=== PATIENT | male | born 1975 | race Caucasian/White ===

== ENCOUNTER 2018-12-23 12:32 | Emergency (ER) | payer SELFPAY | END 2018-12-23 13:50 | disposition left against medical advice (07) | LOC: E/R 12:32 | DX: Z53.21 Procedure and treatment not carried out due to patient leaving prior to being seen by health care provider (principal) ==

== ENCOUNTER 2019-02-03 11:45 | Emergency (ER) | payer BC ==
[2019-02-03 13:14] LABS: ADD MAN DIFF? NO
[2019-02-03 13:17] LABS: WHITE BLOOD COUNT 6.8 10^3/ul (4.8-10.8)
[2019-02-03 13:17] LABS: ABNORMAL IP MESSAGE 1; BASOPHIL # 0.1 10^3/ul (0.0-0.1); BASOPHILS % 1.3 % (0.0-2.0); EOSINOPHILS # 0.2 10^3/ul (0.0-0.5); EOSINOPHILS % 2.8 % (0.0-7.0); HEMATOCRIT 23.8 % (42.0-52.0); HEMOGLOBIN 7.8 g/dl (14.0-18.0); LYMPHOCYTES # 1.4 10^3/ul (0.8-2.9); LYMPHOCYTES % 20.8 % (15.0-51.0); MEAN CORPUSCULAR HGB CONC 32.8 g/dl (32.0-37.0); MEAN CORPUSCULAR VOLUME 88.5 fl (82.0-101.0); MEAN PLATELET VOLUME 10.3 fl (7.4-10.4); MONOCYTES % 14.4 % (0.0-11.0); NEUTROPHIL # 4.1 10^3/ul (1.6-7.5); NEUTROPHILS % 60.1 % (39.0-77.0); PLATELET COUNT 69 10^3/UL (140-415); POSITIVE DIFF @See below; RED BLOOD COUNT 2.69 10^6/ul (4.70-6.10); RED CELL DISTRIBUTION WIDTH 19.5 % (11.5-14.5)
[2019-02-03 13:35] LABS: ALANINE AMINOTRANSFERASE 52 IU/L (13-69); ALBUMIN 3.9 g/dl (3.3-4.9); ALBUMIN/GLOBULIN RATIO 0.73; ALKALINE PHOSPHATASE 157 IU/L (42-121); ANION GAP 10 (5-13); ASPARTATE AMINO TRANSFERASE 139 IU/L (15-46); BILIRUBIN,INDIRECT 3.8 mg/dl (0-1.1); BILIRUBIN,TOTAL 4.3 mg/dl (0.2-1.3); BLOOD UREA NITROGEN 11 mg/dl (7-20); CALCIUM 8.8 mg/dl (8.4-10.2); CARBON DIOXIDE 23 mmol/L (21-31); CHLORIDE 105 mmol/L (97-110); CREATININE 0.61 mg/dl (0.61-1.24); Estimated GFR > 60 mL/min (>60); GLUCOSE 115 mg/dl (70-220); POTASSIUM 3.8 mmol/L (3.5-5.1); SODIUM 138 mmol/L (135-144); TOTAL PROTEIN 9.2 g/dl (6.1-8.1)
[2019-02-03 13:40] LABS: INR 1.75; PROTIME 20.5 Sec (11.9-14.9); PT RATIO 1.6
[2019-02-03 13:41] LABS: PARTIAL THROMBOPLASTIN TIME 40.8 Sec (23.0-35.0)
[2019-02-03 14:39] LABS: ANISOCYTOSIS 1+ (0-0); EOSINOPHILS % (M) 1 % (0-7); LYMPHOCYTES #M 2.4 10^3/ul (0.8-2.9); LYMPHOCYTES % (M) 36 % (15-51); MICROCYTOSIS 1+ (0-0); MONOCYTE #M 0.5 10^3/ul (0.3-0.9); MONOCYTES % (M) 8 % (0-11); PLATELET ESTIMATE DECREASED; REACTIVE LYMPHOCYTES% (M) 1 % (0-0); SEGMENTED NEUTROPHILS (M) % 54 % (39-77); SMUDGE%M 2 % (0-0)
== END 2019-02-03 14:29 | disposition home or self-care (01) ==
LOC: E/R 11:45
DX: S80.11XA Contusion of right lower leg, initial encounter (principal); X50.1XXA Overexertion from prolonged static or awkward postures, initial encounter; Y92.9 Unspecified place or not applicable
CPT/HCPCS: 80053; 85025; 85610; 85730; 86850; 86900; 86901; 99283

== ENCOUNTER 2019-02-05 06:41 | Inpatient (IN) | payer BC ==
[2019-02-05] MEDS: morphine 4 MG/ML VIAL IV (07:19)
[2019-02-05] MEDS: SOD CHLORIDE 0.9% 1,000 ML IV ×2 (07:19→12:22)
[2019-02-05] MEDS: ONDANSETRON 4 MG INJ IV (07:19)
[2019-02-05 07:20] LABS: ADD MAN DIFF? NO
[2019-02-05 07:22] LABS: WHITE BLOOD COUNT 8.4 10^3/ul (4.8-10.8)
[2019-02-05 07:22] LABS: ABNORMAL IP MESSAGE 1; BASOPHIL # 0.1 10^3/ul (0.0-0.1); BASOPHILS % 1.1 % (0.0-2.0); EOSINOPHILS # 0.3 10^3/ul (0.0-0.5); EOSINOPHILS % 3.2 % (0.0-7.0); HEMATOCRIT 22.5 % (42.0-52.0); HEMOGLOBIN 7.3 g/dl (14.0-18.0); LYMPHOCYTES # 1.6 10^3/ul (0.8-2.9); MEAN CORPUSCULAR HGB CONC 32.4 g/dl (32.0-37.0); MEAN CORPUSCULAR VOLUME 89.3 fl (82.0-101.0); MEAN PLATELET VOLUME 10.4 fl (7.4-10.4); MONOCYTE # 1.1 10^3/ul (0.3-0.9); MONOCYTES % 12.6 % (0.0-11.0); NEUTROPHIL # 5.4 10^3/ul (1.6-7.5); NEUTROPHILS % 63.6 % (39.0-77.0); PLATELET COUNT 88 10^3/UL (140-415); POSITIVE DIFF @See below; RED BLOOD COUNT 2.52 10^6/ul (4.70-6.10); RED CELL DISTRIBUTION WIDTH 19.9 % (11.5-14.5)
[2019-02-05 07:41] LABS: ALANINE AMINOTRANSFERASE 40 IU/L (13-69); ALBUMIN 3.9 g/dl (3.3-4.9); ALBUMIN/GLOBULIN RATIO 0.76; ALKALINE PHOSPHATASE 119 IU/L (42-121); ANION GAP 12 (5-13); ASPARTATE AMINO TRANSFERASE 121 IU/L (15-46); BILIRUBIN,INDIRECT 5.8 mg/dl (0-1.1); BILIRUBIN,TOTAL 7.1 mg/dl (0.2-1.3); BLOOD UREA NITROGEN 11 mg/dl (7-20); CARBON DIOXIDE 20 mmol/L (21-31); CHLORIDE 104 mmol/L (97-110); CREATINE KINASE 1273 IU/L (23-200); CREATININE 0.68 mg/dl (0.61-1.24); Estimated GFR > 60 mL/min (>60); GLUCOSE 112 mg/dl (70-220); INR 1.94; POTASSIUM 3.6 mmol/L (3.5-5.1); PROTIME 22.2 Sec (11.9-14.9); PT RATIO 1.7; SODIUM 136 mmol/L (135-144)
[2019-02-05 07:42] LABS: PARTIAL THROMBOPLASTIN TIME 38.8 Sec (23.0-35.0)
[2019-02-05 07:43] LABS: LIPASE 153 U/L (23-300)
[2019-02-05] MEDS ORDERED: ACETAMINOPHEN 325 MG TAB PO ×2 (08:00→10:00)
[2019-02-05] MEDS ORDERED: ONDANSETRON 4 MG INJ IV ×2 (08:00→10:00)
[2019-02-05 08:29] LABS: ADD UMIC NO; UR ASCORBIC ACID 40 mg/dL (NEGATIVE); UR BILIRUBIN (Dip) 1+ mg/dL (NEGATIVE); UR BLOOD (Dip) NEGATIVE (NEGATIVE); UR CLARITY CLEAR (CLEAR); UR COLOR AMBER (YELLOW); UR GLUCOSE (Dip) NEGATIVE (NEGATIVE); UR KETONES (Dip) NEGATIVE (NEGATIVE); UR LEUKOCYTE ESTERASE (Dip) NEGATIVE Leu/ul (NEGATIVE); UR NITRITE (Dip) NEGATIVE (NEGATIVE); UR SPECIFIC GRAVITY (Dip) 1.026 (1.003-1.030); UR TOTAL PROTEIN (Dip) NEGATIVE (NEGATIVE); UR UROBILINOGEN (Dip) 2+ mg/dL (NEGATIVE)
[2019-02-05] MEDS ORDERED: BISACODYL (EC) 5 MG TAB PO (10:00)
[2019-02-05] MEDS ORDERED: NACL 0.9% 3 ML SYG IV (10:00)
[2019-02-05] MEDS: HYDROmorphONE 1 MG/ML SYG IV ×3 (10:12→20:50)
[2019-02-05 10:18] LABS: HAAIG REFLEX REFLEX FILED
[2019-02-05] MEDS ORDERED: VANCOMYCIN IV PER PHARMACY XX (10:30)
[2019-02-05 11:38] LABS: HEPATITIS B SURFACE ANTIGEN NEGATIVE (NEGATIVE)
[2019-02-05 11:56] LABS: HEPATITIS C VIRAL ANTIBODY NEGATIVE (NEGATIVE)
[2019-02-05] MEDS: PIPER-TAZO 3.375 GM IV (PMX) 100 ML IVPB ×2 (12:10→20:46)
[2019-02-05] MEDS: VANCOMYCIN HCL 1.75 GM in SOD CHLORIDE 0.9% 500 ML IVPB (12:53)
[2019-02-05 13:12] LABS: HEPATITIS B CORE ANTIBODY NEGATIVE (NEGATIVE)
[2019-02-05] MEDS: PHYTONADIONE 10 MG in DEXTROSE 5% 50 ML IVPB (17:27)
[2019-02-05] MEDS: SOD CHLORIDE 0.9% 250 ML IV* ×2 (17:38→21:14)
[2019-02-05] MEDS ORDERED: SODIUM BICARBONATE (IV ADD) 50 MEQ in SOD CHLORIDE 0.45% 1,000 ML IV (18:30)
[2019-02-05 18:52] LABS: IRON 49 ug/dl (35-150)
[2019-02-05 19:01] LABS: % IRON SATURATION 12 % SAT (22-52); TOTAL IRON BINDING CAPACITY 396 ug/dl (241-421)
[2019-02-05] MEDS: PHYTONADIONE 10 MG/ML INJ SC (20:06)
[2019-02-05] MEDS: SODIUM BICARBONATE (IV ADD) 50 MEQ in SOD CHLORIDE 0.45% 1,000 ML IV (21:59)
[2019-02-05] MEDS: HYDROCODONE/APAP (5/325) TAB PO (22:11)
[2019-02-06] MEDS: VANCOMYCIN 1 GM 250 ML IVPB ×3 (00:16→16:51)
[2019-02-06] MEDS: HYDROmorphONE 1 MG/ML SYG IV (01:55)
[2019-02-06] MEDS: PIPER-TAZO 3.375 GM IV (PMX) 100 ML IVPB ×5 (02:45→23:33)
[2019-02-06] MEDS: THIAMINE 100 MG TAB PO (08:23)
[2019-02-06] MEDS: HYDROCODONE/APAP (5/325) TAB PO ×3 (08:24→22:38)
[2019-02-06] MEDS: PHYTONADIONE (1 MG/ML PO SYG) PO (08:56)
[2019-02-06 09:13] LABS: ADD MAN DIFF? NO
[2019-02-06 09:14] LABS: ABNORMAL IP MESSAGE 1; BASOPHIL # 0.1 10^3/ul (0.0-0.1); BASOPHILS % 1.4 % (0.0-2.0); EOSINOPHILS # 0.2 10^3/ul (0.0-0.5); HEMATOCRIT 26.6 % (42.0-52.0); HEMOGLOBIN 8.7 g/dl (14.0-18.0); LYMPHOCYTES % 14.3 % (15.0-51.0); MEAN CORPUSCULAR HEMOGLOBIN 29.6 pg (29.0-33.0); MEAN CORPUSCULAR HGB CONC 32.7 g/dl (32.0-37.0); MEAN CORPUSCULAR VOLUME 90.5 fl (82.0-101.0); MEAN PLATELET VOLUME 10.4 fl (7.4-10.4); MONOCYTE # 0.9 10^3/ul (0.3-0.9); NEUTROPHIL # 4.9 10^3/ul (1.6-7.5); NEUTROPHILS % 67.7 % (39.0-77.0); PLATELET COUNT 92 10^3/UL (140-415); POSITIVE DIFF @See below; RED BLOOD COUNT 2.94 10^6/ul (4.70-6.10); RED CELL DISTRIBUTION WIDTH 18.2 % (11.5-14.5)
[2019-02-06 09:14] LABS: WHITE BLOOD COUNT 7.3 10^3/ul (4.8-10.8)
[2019-02-06 09:33] LABS: INR 1.75; PARTIAL THROMBOPLASTIN TIME 39.6 Sec (23.0-35.0); PROTIME 20.5 Sec (11.9-14.9); PT RATIO 1.6
[2019-02-06 09:39] LABS: ALANINE AMINOTRANSFERASE 43 IU/L (13-69); ALBUMIN 3.4 g/dl (3.3-4.9); ALBUMIN/GLOBULIN RATIO 0.75; ALKALINE PHOSPHATASE 95 IU/L (42-121); ANION GAP 10 (5-13); ASPARTATE AMINO TRANSFERASE 101 IU/L (15-46); BILIRUBIN,INDIRECT 6.6 mg/dl (0-1.1); BILIRUBIN,TOTAL 8.4 mg/dl (0.2-1.3); BLOOD UREA NITROGEN 9 mg/dl (7-20); CALCIUM 8.1 mg/dl (8.4-10.2); CARBON DIOXIDE 23 mmol/L (21-31); CHLORIDE 104 mmol/L (97-110); CHOL/HDL RATIO 5.2 RATIO; CHOLESTEROL 249 mg/dl (100-200); CREATININE 0.57 mg/dl (0.61-1.24); Estimated GFR > 60 mL/min (>60); GLUCOSE 91 mg/dl (70-220); HDL CHOLESTEROL 47 mg/dl (27-67); MAGNESIUM 1.6 mg/dl (1.7-2.5); PHOSPHORUS 3.4 mg/dl (2.5-4.9); POTASSIUM 3.5 mmol/L (3.5-5.1); SODIUM 137 mmol/L (135-144); TOTAL PROTEIN 7.9 g/dl (6.1-8.1)
[2019-02-06 09:40] LABS: CREATINE KINASE 1263 IU/L (23-200)
[2019-02-06 09:41] LABS: LDL CHOLESTEROL,CALCULATED 156 mg/dl; TRIGLYCERIDES 232 mg/dl (0-149)
[2019-02-06 09:50] LABS: CK INDEX 0.2; CK-MB 1.92 ng/ml (0.0-2.4); TROPONIN-I < 0.012 ng/ml (0.000-0.120)
[2019-02-06 10:15] LABS: HEMOGLOBIN A1C 4.8 % (0-5.9)
[2019-02-06 10:37] LABS: ERYTHROCYTE SEDIMENTATION RATE 55 mm/Hr (0-15)
[2019-02-06 12:57] LABS: LACTATE DEHYDROGENASE 877 IU/L (313-618)
[2019-02-06] MEDS: SODIUM BICARBONATE (IV ADD) 50 MEQ in SOD CHLORIDE 0.45% 1,000 ML IV ×2 (13:34→19:00)
[2019-02-06 16:40] LABS: VANCOMYCIN,TROUGH 6.3 ug/ml (10.0-20.0)
[2019-02-06 16:43] LABS: CANCER ANTIGEN 19-9 57.3 U/ml (0.0-37.0)
[2019-02-06] MEDS: BARIUM SULF 2% 450 ML BTL (BERRY SMOOTHIE) PO (17:52)
[2019-02-06 19:20] LABS: ALPHA FETOPROTEIN 2.16 IU/L (0.00-7.21)
[2019-02-07] MEDS: VANCOMYCIN 1.25 GM/NS 250 ML 250 ML IVPB ×3 (00:56→18:45)
[2019-02-07] MEDS: HYDROCODONE/APAP (5/325) TAB PO (04:06)
[2019-02-07] MEDS: SODIUM BICARBONATE (IV ADD) 50 MEQ in SOD CHLORIDE 0.45% 1,000 ML IV ×2 (05:00→12:17)
[2019-02-07] MEDS: HYDROmorphONE 1 MG/ML SYG IV ×2 (05:08→16:36)
[2019-02-07 06:24] LABS: ADD MAN DIFF? NO
[2019-02-07] MEDS: PIPER-TAZO 3.375 GM IV (PMX) 100 ML IVPB ×3 (06:25→17:20)
[2019-02-07 06:32] LABS: ABNORMAL IP MESSAGE 1; BASOPHIL # 0.1 10^3/ul (0.0-0.1); BASOPHILS % 0.9 % (0.0-2.0); EOSINOPHILS # 0.3 10^3/ul (0.0-0.5); EOSINOPHILS % 2.4 % (0.0-7.0); HEMATOCRIT 16.7 % (42.0-52.0); LYMPHOCYTES # 1.7 10^3/ul (0.8-2.9); LYMPHOCYTES % 14.6 % (15.0-51.0); MEAN CORPUSCULAR HGB CONC 31.7 g/dl (32.0-37.0); MEAN CORPUSCULAR VOLUME 91.3 fl (82.0-101.0); MEAN PLATELET VOLUME 10.9 fl (7.4-10.4); MONOCYTE # 1.7 10^3/ul (0.3-0.9); MONOCYTES % 14.4 % (0.0-11.0); NEUTROPHIL # 7.7 10^3/ul (1.6-7.5); PLATELET COUNT 109 10^3/UL (140-415); POSITIVE DIFF @See below; RED BLOOD COUNT 1.83 10^6/ul (4.70-6.10); RED CELL DISTRIBUTION WIDTH 18.6 % (11.5-14.5)
[2019-02-07 06:32] LABS: WHITE BLOOD COUNT 11.5 10^3/ul (4.8-10.8)
[2019-02-07 06:55] LABS: CREATINE KINASE 832 IU/L (23-200); MAGNESIUM 1.6 mg/dl (1.7-2.5)
[2019-02-07 06:55] LABS: PHOSPHORUS 3.9 mg/dl (2.5-4.9)
[2019-02-07 06:56] LABS: INR 2.49; PT RATIO 2.1
[2019-02-07 06:57] LABS: PARTIAL THROMBOPLASTIN TIME 41.8 Sec (23.0-35.0)
[2019-02-07 07:02] LABS: CK INDEX 0.2; CK-MB 1.61 ng/ml (0.0-2.4); TROPONIN-I < 0.012 ng/ml (0.000-0.120)
[2019-02-07 07:08] LABS: HEMOGLOBIN 5.3 g/dl (14.0-18.0)
[2019-02-07 07:15] LABS: ALANINE AMINOTRANSFERASE 39 IU/L (13-69); ALBUMIN 2.4 g/dl (3.3-4.9); ALBUMIN/GLOBULIN RATIO 0.72; ALKALINE PHOSPHATASE 68 IU/L (42-121); ANION GAP 7 (5-13); ASPARTATE AMINO TRANSFERASE 73 IU/L (15-46); BILIRUBIN,INDIRECT 5.6 mg/dl (0-1.1); BILIRUBIN,TOTAL 6.8 mg/dl (0.2-1.3); BLOOD UREA NITROGEN 19 mg/dl (7-20); CALCIUM 7.9 mg/dl (8.4-10.2); CARBON DIOXIDE 23 mmol/L (21-31); CHLORIDE 103 mmol/L (97-110); CREATININE 0.79 mg/dl (0.61-1.24); Estimated GFR > 60 mL/min (>60); GLUCOSE 134 mg/dl (70-220); POTASSIUM 3.7 mmol/L (3.5-5.1); SODIUM 133 mmol/L (135-144); TOTAL PROTEIN 5.7 g/dl (6.1-8.1)
[2019-02-07 07:16] LABS: AMMONIA 18 umol/l (9-30)
[2019-02-07 07:21] LABS: THYROID STIMULATING HORMONE 0.583 MIU/L (0.465-4.680)
[2019-02-07] MEDS: THIAMINE 100 MG TAB PO (09:08)
[2019-02-07 09:53] LABS: ANISOCYTOSIS 2+ (0-0); GIANT THROMBO% (M) 2 % (0-0); LYMPHOCYTES #M 1.2 10^3/ul (0.8-2.9); LYMPHOCYTES % (M) 11 % (15-51); METAMYELOCYTES #M 0.3 10^3/ul (0.0-0.0); METAMYELOCYTES %M 3 % (0-0); MONOCYTES % (M) 9 % (0-11); MYELOCYTES #M 0.2 10^3/ul (0.0-0.0); MYELOCYTES % (M) 2 % (0-0); PLATELET ESTIMATE DECREASED; POLYCHROMASIA 3+ (0-0); SEGMENTED NEUTROPHILS (M) % 75 % (39-77); SMUDGE%M 9 % (0-0)
[2019-02-07] MEDS: PHYTONADIONE (1 MG/ML PO SYG) PO (10:25)
[2019-02-07 10:44] LABS: IMMEDIATE SPIN CROSSMATCH 1 9
[2019-02-07 12:31] LABS: HEMATOCRIT 14.2 % (42.0-52.0)
[2019-02-07 12:46] LABS: HEMOGLOBIN 4.5 g/dl (14.0-18.0)
[2019-02-07] MEDS: OCTREOTIDE 500 MCG in DEXTROSE 5% 49 ML IV (13:03)
[2019-02-07] MEDS: FUROSEMIDE 20 MG INJ IV ×3 (13:23→16:35)
[2019-02-07] MEDS: PANTOPRAZOLE IV 80 MG in SOD CHLORIDE 0.9% 100 ML IVPB (13:59)
[2019-02-07] MEDS: PANTOPRAZOLE IV 80 MG in SOD CHLORIDE 0.9% 100 ML IV ×2 (13:59→23:18)
[2019-02-07 17:44] LABS: HEMATOCRIT 20.7 % (42.0-52.0)
[2019-02-07 17:54] LABS: HEMOGLOBIN 6.8 g/dl (14.0-18.0)
[2019-02-07] MEDS ORDERED: ETOMIDATE 20 MG INJ (17:55)
[2019-02-07] MEDS ORDERED: LIDOCAINE 2% (SDV) 5 ML INJ (17:55)
[2019-02-07] MEDS ORDERED: MIDAZOLAM 1 MG/ML 2 ML INJ (17:56)
[2019-02-07] MEDS ORDERED: PHENYLephrine (100 MCG/ML) 10ML SYG (18:25)
[2019-02-07] MEDS ORDERED: PROPOFOL 20 ML (18:25)
[2019-02-07] MEDS ORDERED: ONDANSETRON 4 MG INJ IV (19:30)
[2019-02-07 22:28] LABS: IMMEDIATE SPIN CROSSMATCH 1
[2019-02-08] MEDS: PIPER-TAZO 3.375 GM IV (PMX) 100 ML IVPB ×5 (00:22→23:49)
[2019-02-08] MEDS: SODIUM BICARBONATE (IV ADD) 50 MEQ in SOD CHLORIDE 0.45% 1,000 ML IV ×2 (00:22→12:44)
[2019-02-08] MEDS: FUROSEMIDE 20 MG INJ IV ×2 (01:30→06:58)
[2019-02-08 04:53] LABS: ADD MAN DIFF? NO
[2019-02-08 05:02] LABS: WHITE BLOOD COUNT 5.9 10^3/ul (4.8-10.8)
[2019-02-08 05:02] LABS: ABNORMAL IP MESSAGE 1; BASOPHIL # 0.1 10^3/ul (0.0-0.1); BASOPHILS % 1.7 % (0.0-2.0); EOSINOPHILS # 0.3 10^3/ul (0.0-0.5); EOSINOPHILS % 4.6 % (0.0-7.0); HEMATOCRIT 21.9 % (42.0-52.0); HEMOGLOBIN 7.2 g/dl (14.0-18.0); LYMPHOCYTES # 1.7 10^3/ul (0.8-2.9); LYMPHOCYTES % 28.9 % (15.0-51.0); MEAN CORPUSCULAR HEMOGLOBIN 28.9 pg (29.0-33.0); MEAN CORPUSCULAR HGB CONC 32.9 g/dl (32.0-37.0); MEAN PLATELET VOLUME 10.1 fl (7.4-10.4); MONOCYTES % 16.4 % (0.0-11.0); NEUTROPHIL # 2.9 10^3/ul (1.6-7.5); NEUTROPHILS % 48.1 % (39.0-77.0); NUCLEATED RED BLOOD CELLS% 0.3 /100WBC (0.0-0.0); PLATELET COUNT 94 10^3/UL (140-415); POSITIVE DIFF @See below; RED BLOOD COUNT 2.49 10^6/ul (4.70-6.10); RED CELL DISTRIBUTION WIDTH 17.9 % (11.5-14.5)
[2019-02-08] MEDS ORDERED: FUROSEMIDE 20 MG INJ (05:05)
[2019-02-08 05:19] LABS: INR 1.86; PROTIME 21.5 Sec (11.9-14.9); PT RATIO 1.7
[2019-02-08 05:24] LABS: VANCOMYCIN,TROUGH 18.5 ug/ml (10.0-20.0)
[2019-02-08 05:24] LABS: ALANINE AMINOTRANSFERASE 41 IU/L (13-69); ALBUMIN 2.6 g/dl (3.3-4.9); ALBUMIN/GLOBULIN RATIO 0.74; ALKALINE PHOSPHATASE 54 IU/L (42-121); ANION GAP 6 (5-13); ASPARTATE AMINO TRANSFERASE 88 IU/L (15-46); BILIRUBIN,INDIRECT 5.6 mg/dl (0-1.1); BILIRUBIN,TOTAL 5.8 mg/dl (0.2-1.3); BLOOD UREA NITROGEN 13 mg/dl (7-20); CALCIUM 7.6 mg/dl (8.4-10.2); CARBON DIOXIDE 29 mmol/L (21-31); CHLORIDE 101 mmol/L (97-110); CREATININE 0.73 mg/dl (0.61-1.24); Estimated GFR > 60 mL/min (>60); GLUCOSE 95 mg/dl (70-220); POTASSIUM 3.1 mmol/L (3.5-5.1); SODIUM 136 mmol/L (135-144); TOTAL PROTEIN 6.1 g/dl (6.1-8.1)
[2019-02-08] MEDS: OCTREOTIDE 500 MCG in DEXTROSE 5% 49 ML IV (08:30)
[2019-02-08] MEDS: THIAMINE 100 MG TAB PO (08:37)
[2019-02-08] MEDS: PHYTONADIONE (1 MG/ML PO SYG) PO (08:37)
[2019-02-08] MEDS: VANCOMYCIN 1.25 GM/NS 250 ML 250 ML IVPB ×3 (08:38→16:18)
[2019-02-08] MEDS ORDERED: POTASSIUM CHLORIDE 20 MEQ POWDER FOR ORAL SOLN PO ×2 (09:00)
[2019-02-08] MEDS: POTASSIUM CHLORIDE 20 MEQ POWDER FOR ORAL SOLN PO (09:04)
[2019-02-08] MEDS: PANTOPRAZOLE IV 80 MG in SOD CHLORIDE 0.9% 100 ML IV (10:20)
[2019-02-08] MEDS ORDERED: PEG/ELECTROLYTES 4L BTL PO (10:30)
[2019-02-08 10:49] LABS: HEMATOCRIT 25.4 % (42.0-52.0); HEMOGLOBIN 8.3 g/dl (14.0-18.0)
[2019-02-08 11:27] LABS: ANION GAP 6 (5-13); BLOOD UREA NITROGEN 13 mg/dl (7-20); CALCIUM 7.9 mg/dl (8.4-10.2); CARBON DIOXIDE 28 mmol/L (21-31); CHLORIDE 101 mmol/L (97-110); CREATININE 0.65 mg/dl (0.61-1.24); Estimated GFR > 60 mL/min (>60); GLUCOSE 118 mg/dl (70-220); POTASSIUM 3.7 mmol/L (3.5-5.1); SODIUM 135 mmol/L (135-144)
[2019-02-08] MEDS: PEG/ELECTROLYTES 4L BTL PO (13:50)
[2019-02-08] MEDS: DOCUSATE SODIUM 100 MG CAP PO (14:30)
[2019-02-08] MEDS: SUCRALFATE (100 MG/ML) 10ML CUP PO ×3 (14:30→20:10)
[2019-02-08] MEDS: PANTOPRAZOLE 40 MG INJ IV (17:21)
[2019-02-08 17:44] LABS: HEMATOCRIT 25.6 % (42.0-52.0); HEMOGLOBIN 8.5 g/dl (14.0-18.0)
[2019-02-08] MEDS: HYDROCODONE/APAP (5/325) TAB PO (20:10)
[2019-02-09 00:30] LABS: HEMOGLOBIN 8.3 g/dl (14.0-18.0)
[2019-02-09] MEDS: VANCOMYCIN 1.25 GM/NS 250 ML 250 ML IVPB ×3 (01:19→16:12)
[2019-02-09] MEDS: PIPER-TAZO 3.375 GM IV (PMX) 100 ML IVPB ×2 (05:42→12:40)
[2019-02-09] MEDS: PANTOPRAZOLE 40 MG INJ IV ×2 (05:42→18:18)
[2019-02-09 08:24] LABS: HEMATOCRIT 27.2 % (42.0-52.0); HEMOGLOBIN 9.1 g/dl (14.0-18.0)
[2019-02-09 08:40] LABS: MAGNESIUM 1.6 mg/dl (1.7-2.5)
[2019-02-09 08:44] LABS: VANCOMYCIN,TROUGH 10.3 ug/ml (10.0-20.0)
[2019-02-09] MEDS: DOCUSATE SODIUM 100 MG CAP PO (08:49)
[2019-02-09] MEDS: THIAMINE 100 MG TAB PO (08:49)
[2019-02-09] MEDS: SUCRALFATE (100 MG/ML) 10ML CUP PO ×4 (08:49→20:17)
[2019-02-09 13:37] LABS: MITOCHONDRIAL TB NEGATIVE (NEGATIVE)
[2019-02-09 13:50] LABS: HEMATOCRIT 26.1 % (42.0-52.0); HEMOGLOBIN 8.6 g/dl (14.0-18.0)
[2019-02-09 14:28] LABS: ANA SCREEN NEGATIVE (NEGATIVE)
[2019-02-09 15:15] LABS: CERULOPLASMIN 32 mg/dL (18-36); HAPTOGLOBIN <8 mg/dL (43-212)
[2019-02-09] MEDS: MAGNESIUM SULFATE 2 GM/50 ML 50 ML IVPB (16:20)
[2019-02-09] MEDS ORDERED: MIDAZOLAM 1 MG/ML 2 ML INJ ×2 (17:28)
[2019-02-09] MEDS ORDERED: FENTAnyl 50 MCG/ML VIAL (17:28)
[2019-02-09] MEDS: HYDROCODONE/APAP (5/325) TAB PO (20:48)
[2019-02-10] MEDS: PANTOPRAZOLE (EC) 40 MG TAB PO (05:31)
[2019-02-10] MEDS: SUCRALFATE (100 MG/ML) 10ML CUP PO ×2 (08:51→12:21)
[2019-02-10] MEDS: DOCUSATE SODIUM 100 MG CAP PO (08:51)
[2019-02-10] MEDS: THIAMINE 100 MG TAB PO (08:51)
== END 2019-02-10 15:58 | disposition home or self-care (01) | DRG 556 ==
LOC: ICU 02-07 09:42 → E/R 06:41 → PP2 02-08 20:54 → MS1 08:01
PROC: 0W3P8ZZ Control Bleeding in Gastrointestinal Tract, Via Natural or Artificial Opening Endoscopic (ICD-10-PCS; principal; 2019-02-07 17:30)
PROC: 30233N1 Transfusion of Nonautologous Red Blood Cells into Peripheral Vein, Percutaneous Approach (ICD-10-PCS; 2019-02-07 17:30)
PROC: 02HV33Z Insertion of Infusion Device into Superior Vena Cava, Percutaneous Approach (ICD-10-PCS; 2019-02-07 17:30)
PROC: B548ZZA Ultrasonography of Superior Vena Cava, Guidance (ICD-10-PCS; 2019-02-07 17:30)
PROC: 0DJD8ZZ Inspection of Lower Intestinal Tract, Via Natural or Artificial Opening Endoscopic (ICD-10-PCS; 2019-02-07 17:30)
PROC: 30233K1 Transfusion of Nonautologous Frozen Plasma into Peripheral Vein, Percutaneous Approach (ICD-10-PCS; 2019-02-07 17:30)
DX: M79.81 Nontraumatic hematoma of soft tissue (principal); M62.82 Rhabdomyolysis; D68.9 Coagulation defect, unspecified; R65.10 Systemic inflammatory response syndrome (SIRS) of non-infectious origin without acute organ dysfunction; S86.821A Laceration of other muscle(s) and tendon(s) at lower leg level, right leg, initial encounter; M25.061 Hemarthrosis, right knee; K76.6 Portal hypertension; D62 Acute posthemorrhagic anemia; M25.08 Hemarthrosis, other specified site; D69.6 Thrombocytopenia, unspecified; E83.42 Hypomagnesemia; R16.1 Splenomegaly, not elsewhere classified; K70.30 Alcoholic cirrhosis of liver without ascites; F10.10 Alcohol abuse, uncomplicated; K80.20 Calculus of gallbladder without cholecystitis without obstruction; D63.8 Anemia in other chronic diseases classified elsewhere; M79.A21 Nontraumatic compartment syndrome of right lower extremity
CPT/HCPCS: 36415; 36430; 73700; 73718; 74176; 74181; 76705; 80048; 80053; 80061; 80202; 81003; 82105; 82140; 82390; 82525; 82550; 82553; 82607; 82728; 83010; 83036; 83540; 83615; 83690; 83735; 84100; 84443; 84484; 85014; 85018; 85025; 85384; 85610; 85651; 85730; 86038; 86255; 86301; 86704; 86709; 86803; 86850; 86900; 86901; 86920; 87040-91; 87081; 87086; 87340; 93971; 96374; 96375; 99285-25